=== PATIENT | female | born 1975 | race African-American/Black ===

== ENCOUNTER → 2017-08-02 | Outpatient (CLI) | payer BC ==
--- NOTE | 2017-08-02 16:02 | Diagnostic Imaging Report ---
Indication: PAIN history of L5 radiculopathy Technique: Sagittal T1 and T2 fast spin echo, sagittal STIR, axial T1 and T2 fast spin-echo images of the lumbar spine. Additional oblique T1 fast spin-echo, coronal STIR, axial STIR images of the sacrum Comparison: None Findings: Vertebral body alignment is normal. Vertebral body marrow signal is normal. Vertebral body heights are preserved. Disc spaces are preserved. There is minimal desiccation of the lower lumbar discs. Conus medullaris terminates at the T12-L1 level. At L3-4, there is very mild circumferential annular bulge. This, in combination with short pedicles, results in borderline narrowing of the spinal canal at this level. The neural foramina are preserved. There is evidence of mild facet degeneration at this level bilaterally. At L4-5 there is mild circumferential annular bulge. This does not significantly impinge upon the spinal canal or the neural foramina. At L5-S1, there is minimal circumferential annular bulge. This does not significantly compromise the spinal canal. There is mild narrowing of the neural foramina bilaterally, due to combination of the bulging disc and facet hypertrophy. There is a multicystic lesion of the right ovary. This measures 5.5 cm in length overall. The uterus contains multiple fibroids. There are also multiple cervical nabothian cysts as well as a cervical fibroid. Dedicated views of the sacrum are unremarkable. Impression: No acute abnormality Mild multilevel degenerative changes, as delineated on a level by level basis above. 5.5 cm multicystic right ovarian lesion. Further evaluation with pelvic ultrasound is recommended. Evidence of multiple uterine fibroids and cervical nabothian cysts
== END | disposition home or self-care (01) ==
LOC: MERGE 12:37 → MRI 12:37
DX: M54.16 Radiculopathy, lumbar region (principal); N83.9 Noninflammatory disorder of ovary, fallopian tube and broad ligament, unspecified; D25.9 Leiomyoma of uterus, unspecified; N88.8 Other specified noninflammatory disorders of cervix uteri
CPT/HCPCS: 72148; 72195